=== PATIENT | male | born 1960 | race Caucasian/White ===

== ENCOUNTER 2018-05-31 07:50 | Inpatient (IN) ==
[2018-05-31] MEDS ORDERED: Metoprolol Tartrate 25 MG Tablet PO ONE (08:30)
[2018-05-31] MEDS ORDERED: Chlorhexidine Gluconate 2% 1 Pack (2 Cloths) TOPICAL ONE (08:30)
[2018-05-31] MEDS ORDERED: Sodium Chlor 0.9% Inj 500 ML IV.CONT ONE (08:30)
[2018-05-31] MEDS ORDERED: ceFAZolin 2 GM Premix Inj 2 GM/50 ML PIGGYBACK IV.SIG SCH (09:00)
[2018-05-31] MEDS ORDERED: ceFAZolin Inj 500 MG Vial ONE (10:12)
[2018-05-31] MEDS ORDERED: Bupivacaine Liposomal PF 1.3% Inj 20 ML Vial ONE (10:56)
[2018-05-31] MEDS ORDERED: Bupivacaine/Epinephrine Inj 0.25% 50 ML Vial ONE (11:02)
--- NOTE | 2018-05-31 14:13 | MP ---
cc: Nicola Mary MD DATE OF OPERATION: 05/31/2018 PREOPERATIVE DIAGNOSIS: Ventral incisional hernia. POSTOPERATIVE DIAGNOSIS: Ventral incisional hernia. PROCEDURE PERFORMED: Open repair of ventral incisional hernia with polypropylene mesh. SURGEON: Nicola Mary MD ANESTHESIA: General endotracheal. OPERATIVE FINDINGS: The patient was found to have a wide midline incision with numerous adhesions between the small bowel and the anterior abdominal wall as well as the omentum and the anterior abdominal wall. There were no other gross abnormalities. DESCRIPTION OF PROCEDURE: The patient was brought to the operating room. After satisfactory general endotracheal anesthesia was obtained, the abdomen was prepped and draped in the usual sterile fashion. Ioban drape was placed over the abdomen and the previous midline scar was elliptically excised and discarded. It should be noted the patient had received a TAP block with Exparel before surgery. The bowel was almost immediately encountered and was dissected free from the hernia sac with minimal difficulty. As there was quite a bit of bowel, it took more than 45 minutes of adhesiolysis to free the bowel from the hernia sac as well as the anterior abdominal wall. Omental adhesions were taken down sharply as well as with the cautery. Once the peritoneal cavity was cleaned underneath the fascia enough to be able to effect closure, the subcutaneous tissue was undermined anterior to the fascia on both sides to try to provide a tension-free closure. There was still too much tension on the midline so relaxing incisions were made over the obliques by incising the anterior fascia using the cautery. The midline fascia could then be reapproximated with minimal tension. A piece of polypropylene mesh was selected and cut to the appropriate shape. The omentum, which had been found to be densely adherent in the pelvis was in 2 sections and these were repaired with a running 3-0 silk to reapproximate the entire omentum from top to bottom which was accomplished without difficulty. The omentum was then placed over the bowel and the fascia was then closed with a running #1 double looped PDS without problem. Hemostasis was checked for and found to be satisfactory. The mesh was cut to the appropriate shape and then secured anterior to the entire abdominal wall with enough to cover the ends to cover several centimeters on either side of the relaxing incisions. The mesh was secured with AbsorbaTacks. It was seen to lie flat and was in good position. Two #10 Ezequiel-Singleton drains were brought through separate stab incisions in the upper abdomen and secured to the skin with 3-0 nylon. They were placed within the depths of the wound. Subcutaneous tissue was closed with interrupted 3-0 Vicryl sutures, and the skin closed with a running 4-0 PDS subcuticular stitch. Steri-Strips and a sterile dressing were applied. The patient was then awakened and taken from the operating room, in satisfactory condition, having tolerated the procedure without problem. The estimated blood loss was less than 100 mL. The instrument count, sponge count, and needle counts were reported as being correct x 2 at the end of the procedure. MD OLVIN Hardin/richa , 01:53 PM , 02:02 PM
[2018-05-31] MEDS ORDERED: Morphine Inj 4 MG/ML Vial IV.PUSH PRN ×2 (14:17)
[2018-05-31] MEDS ORDERED: *morphine SULFATE 4 MG/ML PERIprocedure ONLY ONE ×3 (14:30→16:16)
[2018-05-31] MEDS ORDERED: Ketorolac Inj 30 MG/ML (IVP) Vial IV.PUSH ONE (14:30)
[2018-05-31] MEDS ORDERED: fentaNYL Citrate Inj 100 MCG/2 ML Ampul ONE ×2 (14:31)
[2018-05-31] MEDS ORDERED: *Meperidine Inj 25 MG/ML Vial PERIprocedural Use ONLY ONE (14:38)
[2018-05-31] MEDS ORDERED: Morphine Inj 4 MG/ML Vial ONE (14:57)
[2018-06-02] MEDS ORDERED: MV MN FA VIT K LYCOP LUT COQ10 PO SCH (09:00)
[2018-06-02] MEDS ORDERED: FLUOXETINE 20 MG PO SCH (09:00)
[2018-06-02] MEDS ORDERED: MESALAMINE 2.4 GM PO SCH (09:00)
[2018-06-02] MEDS ORDERED: FERROUS SULFATE 325 MG PO SCH (09:00)
== END 2018-06-01 17:11 | disposition home or self-care (01) ==
LOC: HSDI 07:50 → EDSTATUS 09:30 → N07 17:17
PROVIDERS: ADMIT Surgery; ATTEND Surgery